=== PATIENT | male | born 1945 | race Caucasian/White ===

== ENCOUNTER 2019-11-03 17:22 | Emergency (ER) | payer MEDICARE, OTHER ==
[~2019-11-03] VITALS: Ht 157.5 cm; Wt 61.2 kg
[2019-11-03 18:16] VITALS: BP 94/63
[2019-11-03] MEDS ORDERED: ZOLP10TA1 PO (18:26)
[2019-11-03] MEDS ORDERED: METF-337 PO (18:26)
[2019-11-03] MEDS ORDERED: ALPR0.252 PO (18:26)
[2019-11-03] MEDS ORDERED: TRI48 PO (18:26)
[2019-11-03] MEDS ORDERED: CARV3.12 PO (18:26)
[2019-11-03] MEDS ORDERED: MAGN400S60 PO (18:26)
[2019-11-03] MEDS ORDERED: PANT40EC PO (18:26)
[2019-11-03] MEDS ORDERED: TAMS0.4C96 PO (18:26)
[2019-11-03] MEDS ORDERED: LISI2.5T12 PO (18:26)
--- NOTE | 2019-11-03 19:20 | NUR ---
PT AMBULATED TO ER BED 04
[2019-11-03 19:40] VITALS: BP 94/63
[2019-11-03] MEDS ORDERED: KETOROLAC 60 MG/2 ML VIAL IM ONE (19:40)
--- NOTE | 2019-11-03 19:40 | NUR ---
74 Y/O MALE C/O RIGH SIDE ABD PAIN X YEARS. RATES PAIN 10/10 AND DESCRIBES IT BURNING AND "GAS SENSATION." PAIN IS NONRADIATING AND GOT WORSE TODAY. DENIES ANY N,V,D. ABD IS FLAT, SOFT, NONTENDER, WITH HYPOACTIVE BS. VSS. LUNG SOUNDS CLEAR ALL THROUGHOUT. LAST BM WAS THIS AM ABD DESCRIBES IT HARD. TAKES GLYCERIN FOR YEARS. PT STATES, "I HAVE DECREASE IN APPTETITE." A&OX4. STEADY GAIT. NKA. PMH: CABG, APPENDECTOMY, BPH, ANXIETY, CONSTIPATION, INSOMNIA, HTN.
--- NOTE | 2019-11-03 19:41 | NUR ---
PT'S DAUGHTER BENOIT [phone]
--- NOTE | 2019-11-03 20:42 | NUR ---
Patient discharged with v/s stable. Written and verbal after care instructions given and explained. Patient alert, oriented and verbalized understanding of instructions. Ambulatory with steady gait. All questions addressed prior to discharge. ID band removed. Patient advised to follow up with PMD. Rx of MIRALAX AND MINERAL OIL given. Patient educated on indication of medication including possible reaction and side effects. Opportunity to ask questions provided and answered.
== END 2019-11-03 20:42 | disposition home or self-care (01) ==
LOC: MED 17:22
DX: K59.00 Constipation, unspecified (principal); R10.10 Upper abdominal pain, unspecified; E11.9 Type 2 diabetes mellitus without complications; I10 Essential (primary) hypertension; Z79.899 Other long term (current) drug therapy; Z90.49 Acquired absence of other specified parts of digestive tract; Z79.84 Long term (current) use of oral hypoglycemic drugs
CPT/HCPCS: 74022; 74176; 96372; 99284; J1885

== ENCOUNTER 2019-11-04 10:08 | Inpatient (IN) | payer MEDICARE, OTHER ==
[~2019-11-04] VITALS: Ht 160 cm; Wt 64.9 kg
[~2019-11-04 10:08] MED LIST: ALPR0.252 PO; CARV3.12 PO; LISI2.5T12 PO; MAGN400S60 PO; METF-337 PO; PANT40EC PO; TAMS0.4C96 PO; TRI48 PO; ZOLP10TA1 PO
--- NOTE | 2019-11-04 10:09 | NUR ---
Patient BIBA ALS, transferred to bed 6. RN evaluating patient at bedside.
[2019-11-04 10:15] VITALS: BP 111/55
[2019-11-04] MEDS ORDERED: NACL 0.9% 1,000 ML IV ONE ×3 (10:25→12:40)
[2019-11-04] MEDS ORDERED: LACTULOSE 20 GM/30 ML UDC PO ONE (10:25)
[2019-11-04] MEDS ORDERED: ASPIRIN 325 MG TAB PO ONE (10:25)
--- NOTE | 2019-11-04 10:27 | NUR ---
BIBA FROM HOME C/O NON-RADIATING LEFT CHEST PIAN SINCE THIS MORNING & RUQ ABDOMINAL PAIN WITH CONSTIPATION FOR 4 DAYS. PT STATES HE IS CONSTIPATED AND LBM WAS THIS MORNING. NEGATIVE CARTAGENA'S SIGN. AV BLOCK SHOWED ON MONITOR. PT DENIES ANY FEVER, CP, SOB, OR COUGH AT THIS TIME; PATIENT STATES PAIN OF 10/10 AT THIS TIME; VSS; PATIENT POSITIONED FOR COMFORT; HOB ELEVATED; BEDRAILS UP X2; BED DOWN. ER MD MADE AWARE OF PT STATUS.
--- NOTE | 2019-11-04 10:42 | NUR ---
LAB AT BEDSIDE
[2019-11-04 10:57] LABS: BASOPHILS % (AUTO) 0.1 % (0.0-2.0); EOSINOPHILS % (AUTO) 0.2 % (0.0-4.0); HEMATOCRIT 33.2 % (36-52); HEMOGLOBIN 11.3 g/dL (12.0-18.0); LYMPHOCYTES # (AUTO) 1.1 K/uL (2.0-11.5); LYMPHOCYTES % (AUTO) 12.8 % (20.5-51.1); MEAN CORPUSCULAR HEMOGLOBIN 29 pg (27-31); MEAN CORPUSCULAR HGB CONC 34 g/dL (33-37); MEAN CORPUSCULAR VOLUME 84.4 fL (80-94); MONOCYTES # (AUTO) 0.5 K/uL (0.8-1.0); MONOCYTES % (AUTO) 5.7 % (1.7-9.3); NEUTROPHILS # (AUTO) 7.1 K/uL (1.8-7.7); NEUTROPHILS % (AUTO) 81.2 % (42.2-75.2); PLATELET COUNT (AUTO) 262 K/uL (140-450); RED BLOOD CELL COUNT(AUTO) 3.94 MIL/uL (4.20-6.10); RED CELL DISTRIBUTION WIDTH 15.7 % (11.6-13.7); WHITE BLOOD COUNT (AUTO) 8.8 K/uL (4.8-10.8)
--- NOTE | 2019-11-04 11:01 | NUR ---
instructional technology coach at bedside.
[2019-11-04 11:14] LABS: ALBUMIN 3.2 g/dL (3.4-5.0); ANION GAP 8.6 (8-16); ASPARTATE AMINOTRANSFERASE 28 U/L (15-37); CARBON DIOXIDE 27.4 mmol/L (21-32); CHLORIDE 90 mmol/L (98-107); CREATININE 1.1 mg/dL (0.6-1.3); GLUCOSE 116 mg/dL (74-106); LIPASE 127 U/L (73-393); TOTAL BILIRUBIN 1.5 mg/dL (0.0-1.0); UREA NITROGEN, BLOOD 10 mg/dL (7-18)
[2019-11-04 11:38] LABS: SODIUM SERUM 122 mmol/L (136-145)
--- NOTE | 2019-11-04 12:01 | NUR ---
PT IS SITTING IN THE BED QUIETLY. PT IS ON THE MONITOR AND WILL CONTINUE MONITORING HIS VITAL SIGNS.
--- NOTE | 2019-11-04 12:38 | NUR ---
pt states he has really bad left-sided cp, dr. love notified.
[2019-11-04] MEDS ORDERED: MORPHINE SULFATE 4 MG/ML SYR IVP ONE (12:40)
--- NOTE | 2019-11-04 13:20 | NUR ---
Patient will be admitted to care of CP. Admited to TELEMETRY. Will go to room 120B. Belongings list completed. Report to JULIO CANO.
[2019-11-04] MEDS ORDERED: ONDANSETRON 4 MG/2 ML VIAL IM/IVP PRN (13:25)
[2019-11-04] MEDS ORDERED: ACETAMINOPHEN 325 MG TAB PO PRN (13:25)
[2019-11-04] MEDS ORDERED: HYDROcodone/APAP 5/325 MG 1 TAB TAB PO PRN (13:25)
[2019-11-04] MEDS ORDERED: DOCUSATE SODIUM 100 MG GELCAP PO PRN (13:25)
[2019-11-04] MEDS ORDERED: MORPHINE SULFATE 2 MG/ML SYR IVP PRN (13:25)
[2019-11-04] MEDS ORDERED: NITROGLYCERIN 0.4 MG TAB SL PRN (13:25)
[2019-11-04] MEDS ORDERED: LORazepam 2 MG/ML VIAL IM/IVP PRN (13:25)
[2019-11-04 13:30] VITALS: BP 121/58
--- NOTE | 2019-11-04 13:30 | NUR ---
RECEIVED BEDSIDE REPORT FROM ED NURSE. PT RESTING IN BED. ABLE TO MAKE NEEDS KNOWN. RESPIRATIONS EVEN AND UNLABORED WITH NO SOB OR RESPIRATORY DISTRESS. SKIN WARM AND DRY TO TOUCH. IV SITE IN RFA 18G IS CLEAN, DRY, AND INTACT. MRSA SWAB COLLECTED. SAFETY MEASURES IN PLACE. WILL CONTINUE TO MONITOR
[2019-11-04] MEDS ORDERED: KETAMINE 10 MG/ML UD SYR **ER IVP ONE (14:40)
[2019-11-04] MEDS ORDERED: KETOROLAC 15 MG/ML VIAL IVP PRN (14:45)
--- NOTE | 2019-11-04 14:45 | NUR ---
ADMINISTERED SCHED MED PRESCRIBED PER MD ORDER. PT TOLERATED WELL. MEDICATION EDUCATION PERFORMED. PT VERBALIZED UNDERSTANDING. SAFETY MEASURES IN PLACE. WILL CONTINUE TO MONITOR
--- NOTE | 2019-11-04 14:45 | NUR ---
ADMINISTERED SCHED MED PRESCRIBED PER MD ORDER. PT TOLERATED WELL. MEDICATION EDUCATION PERFORMED. PT VERBALIZED UNDERSTANDING. SAFETY MEASURES IN PLACE. WILL CONTINUE TO MONITOR
[2019-11-04] MEDS: NACL 0.9% 1,000 ML IV SCH (14:49)
[2019-11-04] MEDS ORDERED: DEXTROSE 50% 50 ML SYR IVP PRN (15:00)
[2019-11-04] MEDS ORDERED: INSULIN LISPRO SLIDING SCALE 100 UNITS/ML VIAL SUBQ PRN (15:00)
[2019-11-04] MEDS ORDERED: BISACODYL 10 MG SUPP RC SCH (15:01)
[2019-11-04] MEDS ORDERED: MAGNESIUM CITRATE 300 ML BTL PO SCH (15:02)
[2019-11-04 15:09] LABS: PROTHROMBIN TIME 10.7 secs (10.8-13.4)
[2019-11-04] MEDS ORDERED: SODIUM PHOSPHATE 118 ML ENEM RC SCH (15:49)
--- NOTE | 2019-11-04 15:58 | NUR ---
ADMINISTERED SCHED MED PRESCRIBED PER MD ORDER. PT TOLERATED WELL. MEDICATION EDUCATION PERFORMED. PT VERBALIZED UNDERSTANDING. SAFETY MEASURES IN PLACE. WILL CONTINUE TO MONITOR
[2019-11-04 16:00] VITALS: BP 122/49
[2019-11-04] MEDS ORDERED: KETOROLAC 30 MG/ML VIAL IVP PRN (16:00)
[2019-11-04 16:23] LABS: MAGNESIUM 1.4 mg/dL (1.8-2.4); PHOSPHORUS 2.8 mg/dL (2.5-4.9); THYROID STIMULATING HORMONE 1.56 uIU/mL (0.34-3.74)
[2019-11-04] MEDS: BLOOD GLUCOSE MONITORING 1 DEV DEV FS SCH ×2 (16:39→21:21)
[2019-11-04] MEDS ORDERED: SIMETHICONE 80 MG TAB.CHEW PO PRN (16:45)
--- NOTE | 2019-11-04 16:45 | NUR ---
PT COMPLAINED OF MODERATE LLQ PAIN. PRN PAIN MEDICATION ADMINISTERED PRESCRIBED PER MD ORDER. PT TOLERATED WELL. MEDICATION EDUCATION PERFORMED. PT VERBALIZED UNDERSTANDING. SAFETY MEASURES IN PLACE. WILL CONTINUE TO MONITOR
[2019-11-04 17:12] LABS: APPEARANCE,URINE CLEAR (CLEAR); BILIRUBIN,URINE NEGATIVE (NEGATIVE); BLOOD, URINE NEGATIVE (NEGATIVE); COLOR,URINE YELLOW (YELLOW); LEUKOCYTE ESTERASE ,URINE NEGATIVE (NEGATIVE); NITRITE, URINE NEGATIVE (NEGATIVE); PH,URINE 6.5 (5.0-9.0); UGLUCOSE NEGATIVE (NEGATIVE)
--- NOTE | 2019-11-04 18:30 | NUR ---
PT RESTING IN BED. ABLE TO MAKE NEEDS KNOWN. RESPIRATIONS EVEN AND UNLABORED WITH NO SOB OR RESPIRATORY DISTRES. SKIN WARM AND DRY TO TOUCH. SAFETY MEASURES IN PLACE. WILL CONTINUE TO MONITOR
--- NOTE | 2019-11-04 19:15 | NUR ---
ENDORSED AT BEDSIDE TO NIGHTSHIFT NURSE. PT IS STABLE
--- NOTE | 2019-11-04 19:30 | NUR ---
RECEIVED BEDSIDE REPORT FROM AM SHIFT RN FOR PT'S CONTINUITY OF CARE. PT IS AAOX4, AMBULATORY TO THE RESTROOM, IS ON INFECTION PREVENTIONIST, ON ROOM AIR, HAS RIGHT FOREARM 18G, DENIES ANY PAIN AT THIS TIME. EXPLAINED TO PT THE NOTCH MACHINE OPERATOR ROUTINE, PT VERBALIZED UNDERSTANDING. ORIENTED PT TO HOSPITAL SURROUNDINGS AND USE OF CALL LIGHT. SAFETY MEASURES IN PLACE AND CALL LIGHT IS WITHIN REACH. WILL MONITOR PT THROUGHOUT SHIFT.
[2019-11-04 20:00] VITALS: BP 126/63
[2019-11-04] MEDS ORDERED: SIMVASTATIN 20 MG TAB PO SCH (21:00)
[2019-11-04] MEDS: DOCUSATE SODIUM 100 MG GELCAP PO SCH (21:23)
[2019-11-04] MEDS: CARVEDILOL 3.125 MG TAB PO SCH (21:24)
[2019-11-04] MEDS: ZOLPIDEM 5 MG TAB PO PRN (21:24)
[2019-11-04] MEDS: TAMSULOSIN 0.4 MG CAP PO SCH (21:25)
--- NOTE | 2019-11-04 21:25 | NUR ---
ADMINISTERED SCHEDULE MEDICATIONS ORDERED. PT REQUESTED SLEEP AID, ADMINISTERED PRN PO ZOLPIDEM. PT REFUSED HEPARIN SUBQ INJECTION. PT TEACHING GIVEN, PT VERBALIZED UNDERSTANDING, PT STILL REFUSED. WILL CONTINUE TO MONITOR PT.
[2019-11-04 22:48] LABS: BARBITURATE, URINE NEGATIVE ng/ml (NEG <=200); BENZODIAZEPINE, URINE NEGATIVE ng/mL (NEG <=200); CANNABINOID, URINE NEGATIVE ng/mL (NEG <=50); COCAINE, URINE NEGATIVE ng/mL (NEG <=300); OPIATE, URINE POSITIVE ng/mL (NEG <=2000); PHENCYCLIDINE SCREEN,URINE NEGATIVE ng/mL (NEG <=25)
[2019-11-05] VITALS: BP 122/59
[2019-11-05] MEDS: NACL 0.9% 1,000 ML IV SCH ×2 (00:56→11:17)
--- NOTE | 2019-11-05 00:56 | NUR ---
PT WENT TO THE RESTROOM, DENIES ANY PAIN OR DISCOMFORT. HUNG NEW IVF BAG. PT WENT BACK TO SLEEP. WILL CONTINUE TO MONITOR PT.
--- NOTE | 2019-11-05 02:15 | NUR ---
MADE ROUNDS. PT ASLEEP WITH NO SIGNS OF DISTRESS. WILL CONTINUE TO MONITOR PT.
[2019-11-05 03:12] LABS: BASOPHILS % (AUTO) 0.4 % (0.0-2.0); EOSINOPHILS % (AUTO) 0.1 % (0.0-4.0); HEMATOCRIT 33.8 % (36-52); HEMOGLOBIN 11.4 g/dL (12.0-18.0); LYMPHOCYTES # (AUTO) 0.9 K/uL (2.0-11.5); MEAN CORPUSCULAR HEMOGLOBIN 29 pg (27-31); MEAN CORPUSCULAR HGB CONC 34 g/dL (33-37); MEAN CORPUSCULAR VOLUME 85.6 fL (80-94); MONOCYTES # (AUTO) 0.7 K/uL (0.8-1.0); MONOCYTES % (AUTO) 9.8 % (1.7-9.3); NEUTROPHILS # (AUTO) 5.4 K/uL (1.8-7.7); NEUTROPHILS % (AUTO) 76.7 % (42.2-75.2); PLATELET COUNT (AUTO) 263 K/uL (140-450); RED BLOOD CELL COUNT(AUTO) 3.95 MIL/uL (4.20-6.10); WHITE BLOOD COUNT (AUTO) 7.1 K/uL (4.8-10.8)
[2019-11-05 03:21] LABS: ANION GAP 9.3 (8-16); CARBON DIOXIDE 28.1 mmol/L (21-32); CHLORIDE 103 mmol/L (98-107); CREATININE 1.1 mg/dL (0.6-1.3); GLUCOSE 95 mg/dL (74-106); POTASSIUM 4.4 mmol/L (3.5-5.1); SODIUM SERUM 136 mmol/L (136-145); UREA NITROGEN, BLOOD 11 mg/dL (7-18)
[2019-11-05 03:43] LABS: CHOL/HDL RATIO 3.6 (1-4.5)
[2019-11-05 04:00] VITALS: BP 133/73
--- NOTE | 2019-11-05 04:30 | NUR ---
VS CHECKED AND CHARTED. PT DENIES ANY PAIN OR DISCOMFORT. PT'S NEEDS MET AT THIS TIME. WILL CONTINUE TO MONITOR PT.
[2019-11-05] MEDS: BLOOD GLUCOSE MONITORING 1 DEV DEV FS SCH ×4 (06:00→20:18)
--- NOTE | 2019-11-05 06:05 | NUR ---
BLOOD GLUCOSE CHECKED AND CHARTED, NO INSULIN COVERAGE NEEDED. PT AWAKE, PT TEACHING GIVEN, PT VERBALIZED UNDERSTANDING. PT DENIES ANY PAIN OR NEEDS AT THIS TIME. WILL ENDORSE PT TO AM SHIFT RN FOR PT'S CONTINUITY OF CARE.
--- NOTE | 2019-11-05 07:08 | NUR ---
RECEIVED BEDSIDE REPORT FROM PM RN. PT IS AWAKE IN BED, AAOX4 SPEAKS ROMANSH, ABLE TO MAKE NEEDS KNOWN. . DR PASTOR IS TALKING TO PT AT THIS TIME. PT IS ON ROOM AIR, RESPIRATION EVEN AND UNLABORED. WITHOUT ANY SIGN AND SYMPTOMS OF ACUTE DISTRESS. IV SITE AT R FOREARM 18 GAUGE, DRY, INTACT, INFUSING NS AT 100 ML/HR. SKIN IS DRY AND INTACT. PT IS AMBULATORY AND CONTINENT. BED IN LOW, BED LOCKED. SAFETY MEASURES IN PLACE. CALL LIGHT WITHIN REACH. TELE MONITOR IN PLACE. WILL CONTINUE TO MONITOR.
[2019-11-05 08:00] VITALS: BP 114/64
[2019-11-05] MEDS: ASPIRIN 81 MG TAB.CHEW PO SCH (08:56)
[2019-11-05] MEDS: DOCUSATE SODIUM 100 MG GELCAP PO SCH ×2 (08:58→20:19)
[2019-11-05] MEDS: metFORMIN 500 MG TAB PO SCH (08:59)
[2019-11-05] MEDS: CARVEDILOL 3.125 MG TAB PO SCH ×2 (09:00→20:18)
[2019-11-05] MEDS: LISINOPRIL 5 MG TAB PO SCH (09:00)
[2019-11-05] MEDS: MAGNESIUM OXIDE 400 MG TAB PO SCH (09:01)
--- NOTE | 2019-11-05 09:09 | NUR ---
CHECKED BP PRIOR TO MED ADMINISTER, BP 105/50, MAP 62, PULSE 51, HOLD ALL BP MEDS DUE TO LOW MAP 62 AND PULSE 51. ADMINISTERED THE REST OF SCHEDULED MEDS, MEDS EDUCATION PROVIDED TO PT, PT VERBALIZED UNDERSTANDING. PT TOLERATED PO AND SUBQ MEDS WELL. PT AWAKE AND RESTING ON BED AT THIS TIME. ALL NEEDS MET. NO SIGNS OF DISTRESS NOTED. TELE MONITOR ATTACHED. SAFETY MEASURES IN PLACE.
--- NOTE | 2019-11-05 09:19 | NUR ---
NOTIFIED PHARMACY THAT LISINOPRIL WAS OPEN AND DUE TO BP LOW, NOT ADMINISTERED AND UNABLE TO RETURN. PHARMACY WAS AWARE. WASTED MED.
--- NOTE | 2019-11-05 09:35 | NUR ---
RECEIVED A CALL FROM PT'S DAUGHTER BENOIT [phone], UPDATED BENOIT WITH PT'S CURRENT CONDITION AND BENOIT WAS AWARE. PROVIDED BENOIT'S PHONE # TO PT AND ASSISTED PT TO CALL BENOIT WITH PHONE IN HIS ROOM.
[2019-11-05] MEDS: METOCLOPRAMIDE 10 MG TAB PO SCH ×2 (11:19→16:50)
--- NOTE | 2019-11-05 11:22 | NUR ---
CHECKED BLOOD GLUCOSE, RECEIVED 124. NO COVERAGE NEEDED. CHECKED VITAL SIGNS. ADMINISTERED MED PER MD ORDER, MED ED PROVIDED. PT VERBALIZED UNDERSTANDING. PT IS AWAKE, RESTING ON BED AT THIS TIME. DENIED PAIN, SOB AND DIZZINESS. NO SIGNS OF ACUTE DISTRESS NOTED. TELE MONITOR ATTACHED. SAFETY MEASURES IN PLACE.
[2019-11-05 12:00] VITALS: BP 120/54
--- NOTE | 2019-11-05 13:05 | NUR ---
PT IS EATING LUNCH RIGHT NOW. RESPIRATION EVEN AND UNLABORED. NO ACUTE DISTRESS NOTED. TELE MONITOR ATTACHED. BED LOCKED, IN LOW POSITION. CALL LIGHT WITHIN REACH. SAFETY MEASURE IN PLACE.
--- NOTE | 2019-11-05 15:19 | NUR ---
PT IS AWAKE, SITTING ON BED WATCHING TV, ABLE TO MAKE NEEDS KNOWN. RESPIRATION EVEN AND UNLABORED, NO ACUTE DISTRESS NOTED. CALL LIGHT WITHIN REACH. SAFETY MEASURE IN PLACE. WILL CONTINUE TO MONITOR.
[2019-11-05 16:00] VITALS: BP 129/60
--- NOTE | 2019-11-05 16:01 | NUR ---
DECREASED IVF TO 40 ML/HR PER MD ORDER.
--- NOTE | 2019-11-05 16:57 | NUR ---
CHECKED BLOOD GLUCOSE, RECEIVED 88, PROVIDE ORANGE JUICE, PT DENIES DIZZINESS. NO COVERAGE NEEDED. ADMINISTERED MED PER MD ORDER, MED ED PROVIDED. PT VERBALIZED UNDERSTANDING. PT IS AWAKE, RESTING ON BED AT THIS TIME. NO SIGNS OF ACUTE DISTRESS NOTED. TELE MONITOR ATTACHED. SAFETY MEASURES IN PLACE.
--- NOTE | 2019-11-05 17:20 | NUR ---
PT IS AWAKE AND TALKING ON THE PHONE. NO SIGNS OF ACUTE DISTRESS NOTED. TELE MONITOR ATTACHED. SAFETY EMASURES IN PLACE.
--- NOTE | 2019-11-05 19:15 | NUR ---
ENDORSED PT TO SILVER LAP MACHINE TENDER RN AT BEDSIDE. PT IS AWAKE, COMIC BOOK ARTIST AT BEDSIDE TAKING VITALS. PT IS IN STABLE CONDITION. SAFETY MEASURE IN PLACE.
--- NOTE | 2019-11-05 19:16 | NUR ---
RECEIVED BEDSIDE REPORT FROM DAY RN. PT IS AAOX 4 YAKUT SPEAKING BUT UNDERSTANDS SOME CUBAN. ABLE TO MAKE NEEDS KNOWN. RESPIRATIONS ARE EQUAL AND UNLABORED ON ROOM AIR. LUNG SOUNDS ARE CLEAR. SKIN IS INTACT. SKIN WARM AND DRY TO TOUCH. C/C CP PT DENIES ANY PAIN AT THIS TIME. 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 PT HAS HX KY AND TRIPLE CARDIAC BYPASS. IV ON R FA 18G INFUSING NS AT 40ML/H. PT IS AMBULATORY WITH STEADY GAIT, POC DISCUSSED WITH PT. CALL LIGHT IS WITHIN REACH. WILL CONTINUE TO MONITOR.
[2019-11-05 20:00] VITALS: BP 109/50
[2019-11-05] MEDS: TAMSULOSIN 0.4 MG CAP PO SCH (20:19)
--- NOTE | 2019-11-05 20:23 | NUR ---
VSS. HELD B/P MEDS FOR BLOOD PRESSURE 109/50 HR 63. PT REQUEST LENNY THEN ASKED TO TAKE LATER AT MIDNIGHT PUT MED IN CASSETTE.
[2019-11-05] MEDS ORDERED: SIMVASTATIN 20 MG TAB PO SCH (21:00)
--- NOTE | 2019-11-05 22:00 | NUR ---
PATIENT IS LAYING COMFORTABLY IN BED WITH EYES CLOSED. CHEST RISE AND FALL NOTED. CALL LIGHT IS WITHIN REACH.
[2019-11-05] MEDS: ZOLPIDEM 5 MG TAB PO PRN (23:43)
--- NOTE | 2019-11-05 23:43 | NUR ---
VSS. ADMINISTERED PRN AMBIEN FOR SLEEP PER REQUEST. NO S/S OF DISTRESS. ALL SAFETY MEASURES ARE IN PLACE. WILL CONTINUE TO MONITOR.
[2019-11-06] VITALS: BP 116/35
--- NOTE | 2019-11-06 02:30 | NUR ---
PATIENT IS SLEEPING COMFORTABLY IN BED WITH EYES CLOSED. CHEST RISE AND FALL NOTED.
[2019-11-06 04:00] VITALS: BP 125/78
--- NOTE | 2019-11-06 04:00 | NUR ---
VITAL SIGNS ARE WITHIN NORMAL LIMITS. ALL NEEDS MET. CALL LIGHT IS WITHIN REACH.
[2019-11-06] MEDS: NACL 0.9% 1,000 ML IV SCH (04:11)
--- NOTE | 2019-11-06 05:15 | NUR ---
PT LAYING COMFORTABLY IN BED. NO S/S OF DISTRESS. WILL CONTINUE TO MONITOR.
[2019-11-06 05:45] LABS: BASOPHILS % (AUTO) 0.5 % (0.0-2.0); EOSINOPHILS # (AUTO) 0.1 K/uL (0-0.4); EOSINOPHILS % (AUTO) 0.8 % (0.0-4.0); HEMATOCRIT 33.3 % (36-52); HEMOGLOBIN 11.1 g/dL (12.0-18.0); LYMPHOCYTES # (AUTO) 1.1 K/uL (2.0-11.5); LYMPHOCYTES % (AUTO) 12.6 % (20.5-51.1); MEAN CORPUSCULAR HEMOGLOBIN 29 pg (27-31); MEAN CORPUSCULAR HGB CONC 34 g/dL (33-37); MEAN CORPUSCULAR VOLUME 85.1 fL (80-94); MONOCYTES # (AUTO) 0.7 K/uL (0.8-1.0); MONOCYTES % (AUTO) 7.7 % (1.7-9.3); NEUTROPHILS # (AUTO) 6.9 K/uL (1.8-7.7); NEUTROPHILS % (AUTO) 78.4 % (42.2-75.2); PLATELET COUNT (AUTO) 259 K/uL (140-450); RED BLOOD CELL COUNT(AUTO) 3.91 MIL/uL (4.20-6.10); RED CELL DISTRIBUTION WIDTH 15.9 % (11.6-13.7); WHITE BLOOD COUNT (AUTO) 8.8 K/uL (4.8-10.8)
[2019-11-06 06:05] LABS: ANION GAP 10.9 (8-16); CARBON DIOXIDE 25.8 mmol/L (21-32); CHLORIDE 107 mmol/L (98-107); CREATININE 0.9 mg/dL (0.6-1.3); GLUCOSE 97 mg/dL (74-106); POTASSIUM 3.7 mmol/L (3.5-5.1); SODIUM SERUM 140 mmol/L (136-145); UREA NITROGEN, BLOOD 11 mg/dL (7-18)
[2019-11-06] MEDS: BLOOD GLUCOSE MONITORING 1 DEV DEV FS SCH ×2 (06:27→11:19)
[2019-11-06] MEDS ORDERED: CRUSHER, PILL MC ONE (06:30)
[2019-11-06] MEDS: METOCLOPRAMIDE 10 MG TAB PO SCH ×2 (06:32→11:18)
--- NOTE | 2019-11-06 06:32 | NUR ---
NAGI MEDICATIONS GIVEN. BG 97 NO COVERAGE NEEDED. CALL LIGHT IS WITHIN REACH.
--- NOTE | 2019-11-06 07:21 | NUR ---
GAVE BEDSIDE REPORT TO DAY RN. PT ENDORSED IN STABLE CONDITION.
--- NOTE | 2019-11-06 07:23 | NUR ---
RECEIVED BEDSIDE REPORT FROM FRONT DESK ADMINISTRATOR NURSE JACOB FOR CONTINUITY OF CARE. PT IS AWAKE AND USING THE BATHROOM AT THIS TIME. PT IS AAOX4 AND SPEAKS [place], ABLE TO MAKE NEEDS KNOWN. RESPIRATION EVEN AND UNLABORED ON RA. NO SIGNS OF ACUTE DISTRESS NOTED. IV SITE AT R FOREARM 18 GAUGE, DRY, INTACT, INFUSING NS AT 40 ML/HR. SKIN DRY AND INTACT. PT IS AMBULATORY AND CONTINENT. SAFETY MEASURES IN PLACE. CALL LIGHT WITHIN REACH. TELE MONITOR IN PLACE. BED LOCKED.
[2019-11-06 08:00] VITALS: BP 133/63
[2019-11-06] MEDS: ASPIRIN 81 MG TAB.CHEW PO SCH (09:11)
[2019-11-06] MEDS: MAGNESIUM OXIDE 400 MG TAB PO SCH (09:11)
[2019-11-06] MEDS: DOCUSATE SODIUM 100 MG GELCAP PO SCH (09:11)
[2019-11-06] MEDS: metFORMIN 500 MG TAB PO SCH (09:11)
[2019-11-06] MEDS: LISINOPRIL 5 MG TAB PO SCH (09:14)
[2019-11-06] MEDS: CARVEDILOL 3.125 MG TAB PO SCH (09:14)
--- NOTE | 2019-11-06 09:19 | NUR ---
CHECKED BP PRIOR TO MED ADMINISTER, BP 144/66 MAP 92 PULSE 62. ADMINISTERED SCHEDULED MEDS PER MD ORDER, MEDS EDUCATION PROVIDED AND PT VERBALIZED UNDERSTANDING. PT TOLERATED PO MEDS WELL JAVASCRIPT SOFTWARE ENGINEER IS PROVIDING HYGIENE CARE AND CHANGING BEDSHEET AT THIS TIME. NO SIGNS OF DISTRESS NOTED. TELE MONITOR ATTACHED. SAFETY MEASURES IN PLACE.
[2019-11-06] MEDS ORDERED: METF500T2 PO (11:04)
[2019-11-06] MEDS ORDERED: ASPI-1822 PO (11:04)
[2019-11-06] MEDS ORDERED: LOVA40TA4 PO (11:04)
[2019-11-06] MEDS ORDERED: METO-485 PO (11:05)
[2019-11-06] MEDS ORDERED: DOCU-299 PO (11:05)
[2019-11-06] MEDS ORDERED: SIME80TA22 PO (11:11)
--- NOTE | 2019-11-06 11:19 | NUR ---
CHECKED BG AND RECEIVED 113, NO COVERAGE NEEDED. VITAL SIGNS TAKEN. ADMINISTERED SCHEDULED MED PER MD ORDER, MED ED PROVIDED AND PT SAID OK, PT TOLERATED PO MED WELL. PT AWAKE AND WATCHING TV ON BED AT THIS TIME. NO SIGNS OF DISTRESS NOTED. TELE MONITOR ATTACHED. SAFETY MEASURES IN PLACE.
--- NOTE | 2019-11-06 11:38 | NUR ---
PATIENT HAS BEEN SCREENED AND CATEGORIZED HIGH NUTRITION RISK. PATIENT WILL BE SEEN WITHIN 1-2 DAYS OF ADMISSION. 11/05/19 - 11/06/19 AWA [place] MBA, RD
[2019-11-06 12:00] VITALS: BP 120/69
--- NOTE | 2019-11-06 12:30 | NUR ---
INFORMED PT THAT HE WILL BE DC HOME TODAY AND PT WAS AWARE. PT SATED, " I WILL CALL SOMEONE TO PICK ME UP." PT IS SITTING UP ON BED, NO SIGNS OF DISTRESS NOTED. TELE MONITOR ATTACHED. SAFETY MEASURES IN PLACE.
--- NOTE | 2019-11-06 13:32 | NUR ---
PER PT, NO ONE IS ABLE TO TAKE HIM HOME. HE REQUESTS FOR TAXI, CALLED [facility] [phone] AND SPOKE WITH DREA, DREA ESTIMATED THE ROUTE COST $9, UNIVERSITY TUTOR TIME IS BETWEEN NOW TO 45 MINS. INFORMED PT AND PT SAID OK. AWAITING FOR TAXI TO ARRIVE FOR DC. PT IS CHANGING INTO HIS OWN CLOTHES AT THIS TIME. NO SIGNS OF DISTRESS NOTED. TELE MONITOR ATTACHED.
--- NOTE | 2019-11-06 13:55 | NUR ---
DISCHARGE INSTRUCTION PROVIDED TO PT AT BEDSIDE. EDUCATED PT ON DISEASE MANAGEMENT,DIET, MEDICATE REGIMENS, SIDE EFFECTS, FOLLOW UP WITH MD, AND SEEK MEDICAL HELP IN THE CASE OF MEDICAL EMERGENCY. ANSWERED ALL PT'S QUESTIONS. REMOVED ALL ARM BANDS AND IV, IV SITE NO BLEEDING, CANNULA INTACT. PROVIDED PRINTED COPY DISCHARGE INSTRUCTION AND PRESCRIPTIONS. PT WAS AWARE THAT HIS PRESCRIBE MEDS SEND TO HIS PREFERRED PHARMACY. PT PACKED ALL HIS BELONGINGS. PT CHANGED INTO STREET CLOTHES. ESCORTED PT TO THE FRONT LOBBY AND PT IS GOING TO DC THIS TIME IN STABLE CONDITION.
--- NOTE | 2019-11-06 15:33 | NUR ---
11/06/2019 RD INITIAL ASSESSMENT COMPLETED PLEASE REFER TO NUTRITION ASSESSMENT UNDER CARE ACTIVITY FOR ESTIMATED NUTRITIONAL NEEDS. RD RECOMMENDATIONS: 1. RECOMMEND CONTINUE CURRENT DIET 60GM CCHO 2. EDUCATE PATIENT ON DIET 3. F/U 3-5 DAYS; MODERATE RISK AWA [facility] [place] MBA, RD
== END 2019-11-06 13:57 | disposition home or self-care (01) | DRG 206 ==
LOC: MED 10:08 → MTU 12:43
PROVIDERS: ADMIT General Practice; ATTEND General Practice
DX: M94.0 Chondrocostal junction syndrome [Tietze] (principal); E87.1 Hypo-osmolality and hyponatremia; E44.0 Moderate protein-calorie malnutrition; K21.9 Gastro-esophageal reflux disease without esophagitis; E11.9 Type 2 diabetes mellitus without complications; I10 Essential (primary) hypertension; I95.9 Hypotension, unspecified; N40.0 Benign prostatic hyperplasia without lower urinary tract symptoms; Z60.2 Problems related to living alone; K56.41 Fecal impaction; D64.9 Anemia, unspecified; E87.8 Other disorders of electrolyte and fluid balance, not elsewhere classified; R00.1 Bradycardia, unspecified; I25.10 Atherosclerotic heart disease of native coronary artery without angina pectoris; E86.0 Dehydration; K29.70 Gastritis, unspecified, without bleeding; Z90.49 Acquired absence of other specified parts of digestive tract; Z95.1 Presence of aortocoronary bypass graft; Z87.891 Personal history of nicotine dependence; Z68.25 Body mass index [BMI] 25.0-25.9, adult
CPT/HCPCS: 36415; 71045; 74150; 80048; 80053; 80305; 81003; 82948; 83036; 83690; 83735; 83880; 84100; 84134; 84443; 84484; 85025; 85610; 85730; 87081; 87086; 93005; 96361; 96374; 99285; J1644; J1885; J2270; J2405; J7030; J8597

== ENCOUNTER 2023-12-08 15:38 | Emergency (ER) | payer MEDICARE, OTHER ==
[~2023-12-08] VITALS: Ht 160 cm; Wt 67.7 kg
[~2023-12-08 15:38] MED LIST changes: -ALPR0.252 PO; +ASPI-1822 PO; +DOCU-299 PO; -MAGN400S60 PO; +METF-1139 PO; -METF-337 PO; +METO-485 PO; -PANT40EC PO; +SIME80TA41 PO; -TRI48 PO; -ZOLP10TA1 PO
[2023-12-08 15:53] VITALS: BP 123/76; PULSE 69; RESP 16; TEMP 97.8; O2SAT 94
[2023-12-08 16:58] LABS: BASOPHILS % (AUTO) 0.5 % (0.0-2.0); EOSINOPHILS # (AUTO) 0.1 K/uL (0-0.4); HEMATOCRIT 42.4 % (36-52); HEMOGLOBIN 14.3 g/dL (12.0-18.0); LYMPHOCYTES # (AUTO) 1.6 K/uL (2.0-11.5); MEAN CORPUSCULAR HEMOGLOBIN 28 pg (27-31); MEAN CORPUSCULAR HGB CONC 34 g/dL (33-37); MEAN CORPUSCULAR VOLUME 83.3 fL (80-94); MONOCYTES # (AUTO) 0.6 K/uL (0.8-1.0); MONOCYTES % (AUTO) 9.2 % (1.7-9.3); NEUTROPHILS # (AUTO) 4.1 K/uL (1.8-7.7); NEUTROPHILS % (AUTO) 64.3 % (42.2-75.2); PLATELET COUNT (AUTO) 304 K/uL (140-450); RED BLOOD CELL COUNT(AUTO) 5.09 MIL/uL (4.20-6.10); WHITE BLOOD COUNT (AUTO) 6.3 K/uL (4.8-10.8)
[2023-12-08 17:11] LABS: ANION GAP 11.1 (8-16); CALCIUM 8.6 mg/dL (8.5-10.1); CARBON DIOXIDE 30.4 mmol/L (21-32); CHLORIDE 93 mmol/L (98-107); CREATININE 1.1 mg/dL (0.6-1.3); GLUCOSE 111 mg/dL (74-106); POTASSIUM 4.5 mmol/L (3.5-5.1); SODIUM SERUM 130 mmol/L (136-145); UREA NITROGEN, BLOOD 10 mg/dL (7-18)
[2023-12-08 17:43] LABS: BILIRUBIN,DIRECT 0.2 mg/dL (0.0-0.3); TOTAL BILIRUBIN 0.8 mg/dL (0.0-1.0); TOTAL PROTEIN, SERUM 8.2 g/dL (6.4-8.2)
[2023-12-08 17:50] LABS: FLU A ANTIGEN negative (NEGATIVE); FLU B ANTIGEN NEGATIVE (NEGATIVE)
[2023-12-08 18:02] LABS: APPEARANCE,URINE CLEAR (CLEAR)
[2023-12-08 18:03] LABS: BILIRUBIN,URINE NEGATIVE (NEGATIVE); BLOOD, URINE NEGATIVE (NEGATIVE); COLOR,URINE YELLOW (YELLOW); PROTEIN,URINE NEGATIVE (NEGATIVE); UGLUCOSE NEGATIVE (NEGATIVE)
[2023-12-08 18:04] LABS: NITRITE, URINE NEGATIVE (NEGATIVE); UROBILINOGEN,URINE 0.2 EU/dL (0.2 - 1)
[2023-12-08 18:08] LABS: LEUKOCYTE ESTERASE ,URINE NEGATIVE (NEGATIVE)
[2023-12-08 21:15] VITALS: BP 130/72; PULSE 62; RESP 16; TEMP 97.8; O2SAT 97
== END 2023-12-08 21:15 | disposition home or self-care (01) ==
LOC: MED 15:38
DX: R33.9 Retention of urine, unspecified (principal); R42 Dizziness and giddiness; R53.1 Weakness; I10 Essential (primary) hypertension; Z20.822 Contact with and (suspected) exposure to COVID-19; Z86.79 Personal history of other diseases of the circulatory system; Z79.899 Other long term (current) drug therapy; Z79.84 Long term (current) use of oral hypoglycemic drugs; Z79.82 Long term (current) use of aspirin; Z98.890 Other specified postprocedural states
CPT/HCPCS: 36415; 71045; 80048; 80076; 81003; 83690; 84484; 85025; 93005; 99285